=== PATIENT | male | born 1970 | race Caucasian/White ===

== ENCOUNTER 2016-08-12 11:45 | Emergency (ER) | payer BC ==
--- NOTE | 2016-08-12 11:58 | EDPHY ---
HPI/HX/ROS/PE/MDM Narrative: CHIEF COMPLAINT: Palpitations, Chest pressure. HPI: The patient is a 46-year-old male who complains of chest pressure with palpitations. The patient returned from [place] 1 week ago and developed chest pressure. He attributed his symptoms to dehydration. Yesterday he began to note a fluttering or "skipped beats" like sensation in his chest. He has had mild chest pressure constantly since that time. He states this feels similar to another time in the past when he had a Holter monitor. No chest pain with inspiration. REVIEW OF SYSTEMS: Aside from elements discussed in the HPI, a comprehensive 10-point review of systems was reviewed and is negative. PMH: Denies. No know cardiac disease. SOCIAL HISTORY: Works for [employer]. Denies drug or alcohol abuse. PHYSICAL EXAM: General: Patient is alert, in no acute distress. ENT: Eyes are normal to inspection. ENT inspection normal. Neck: Normal inspection. Full range of motion. Respiratory: No respiratory distress. Breath sounds normal bilaterally. Cardiovascular: Regular rate and rhythm. Strong peripheral pulses. Abdomen: The abdomen is nontender to palpation. There are no peritoneal signs. There are normal bowel sounds. Back: Normal to inspection. No tenderness to palpation. Skin: Normal color. No rash. Warm and dry. Extremities: Normal appearance. Full range of motion. Neuro: Oriented x3. Normal motor function. Normal sensory function. Portions of this note were transcribed by a director medical affairs. I personally performed a history, physical exam, medical decision making, and confirmed accuracy of information the transcribed note. ED Course: Patient presents with PVCs with associated chest pressure. Patient was placed on the monitor and storage bin tender. EKG, Chest x-ray, and lab work ordered. EKG was ordered and interpreted by myself: Sinus rhythm. Please see [facility] system for official reading. Patient has normal workup in the ED. Lab work is completely normal. D-dimer and Troponin negative. Chest x-ray is negative. Plan to discharge home with strict return precautions. MDM: This patient presents with palpitations and mild chest pressure. His troponin after constant extended discomfort is normal, and there are no signs of ischemia on ECG. I considered PE given recent travel but d-dimer is negative. On monitor, he is clearly having occasional PVCs without other arrhythmia, and his symptoms correspond to this finding. He is comfortable with the plan to be discharged and follow-up with Cardiology as an outpatient. We discussed strict return precautions. - Data Points Imaging Results: Imaging Impressions Chest X-Ray 08/12/16 11:57 Impression: Chest negative for acute cardiopulmonary abnormality. Imaging: I viewed and interpreted images myself Laboratory Results: Laboratory Results 08/12/16 12:00 08/12/16 12:00 08/12/16 08/12/16 08/12/16 12:00 12:00 12:00 WBC 6.02 10^3/uL 10^3/uL (3.80-9.50) RBC 4.87 10^6/uL 10^6/uL (4.40-6.38) Hgb 15.2 g/dL g/dL (13.7-17.5) Hct 44.4 % % (40.0-51.0) MCV 91.2 fL fL (81.5-99.8) MCH 31.2 pg pg (27.9-34.1) MCHC 34.2 g/dL g/dL (32.4-36.7) RDW 13.4 % % (11.5-15.2) Plt Count 309 10^3/uL 10^3/uL (150-400) MPV 10.0 fL fL (8.7-11.7) Neut % (Auto) 49.4 % % (39.3-74.2) Lymph % (Auto) 36.9 % % (15.0-45.0) [place] % (Auto) 9.0 % % (4.5-13.0) Eos % (Auto) 3.7 % % (0.6-7.6) Baso % (Auto) 0.8 % % (0.3-1.7) Nucleat RBC Rel Count 0.0 % % (0.0-0.2) Absolute Neuts (auto) 2.98 10^3/uL 10^3/uL (1.70-6.50) Absolute Lymphs (auto) 2.22 10^3/uL 10^3/uL (1.00-3.00) Absolute Monos (auto) 0.54 10^3/uL 10^3/uL (0.30-0.80) Absolute Eos (auto) 0.22 10^3/uL 10^3/uL (0.03-0.40) Absolute Basos (auto) 0.05 10^3/uL 10^3/uL (0.02-0.10) Absolute Nucleated RBC 0.00 10^3/uL 10^3/uL (0-0.01) Immature Gran % 0.2 % % (0.0-1.1) Immature Gran # 0.01 10^3/uL 10^3/uL (0.00-0.10) D-Dimer < 0.27 ug/mLFEU ug/mLFEU (0.00-0.50) Sodium 142 mEq/L mEq/L (134-144) Potassium 3.9 mEq/L mEq/L (3.5-5.2) Chloride 106 mEq/L mEq/L (97-110) Carbon Dioxide 24 mEq/l mEq/l (22-31) Anion Gap 12 mEq/L mEq/L (8-16) BUN 13 mg/dL mg/dL (7-23) Creatinine 1.2 mg/dL mg/dL (0.7-1.3) Estimated GFR > 60 Glucose 86 mg/dL mg/dL (70-100) Calcium 10.0 mg/dL mg/dL (8.5-10.4) Troponin I < 0.012 ng/mL ng/mL (0-0.034) General Time Seen by Provider: 08/12/16 11:51 Initial Vital Signs: Initial Vital Signs Temperature (C) 36.8 C 08/12/16 11:47 Heart Rate 81 08/12/16 11:47 Respiratory Rate 16 08/12/16 11:47 Blood Pressure 127/77 H 08/12/16 11:47 O2 Sat (%) 98 08/12/16 11:47 O2 Delivery Mode Room Air Allergies/Adverse Reactions: No Known Allergies Allergy (Unverified 08/12/16 11:50) Departure - Departure Disposition: Home, Routine, Self-Care Clinical Impression: Palpitations, PVC (premature ventricular contraction) Condition: Good Instructions: Palpitations (ED), Premature Ventricular Contractions (ED) Additional Instructions: Follow-up with your primary doctor as needed. Return to the Emergency Department for fever, chest pain, shortness of breath, increasing pain or other worsening of condition. Follow up with a rotary derrick operator for further testing, as soon as possible, within one week. As we discussed, it is impossible to fully rule out heart disease as the cause of your chest pressure in the emergency department. We would be happy to reevaluate you and observe you in the hospital at any time. Referrals: Delores Anguiano MD [Primary Care Provider] - As per Instructions [facility] [Provider Group] - As per Instructions Report Scribed for: Diogenes Singh Report Scribed by: Alanis Monroe Date of Report: 08/12/16 Time of Report: 11:59
--- NOTE | 2016-08-12 11:58 | CPEKG ---
Heart Rate: 74 RR Interval: 811 P-R Interval: 180 QRSD Interval: 110 QT Interval: 392 QTC Interval: 435 P [place]: 73 QRS [place]: 71 T Wave [place]: 48 EKG Severity - ABNORMAL ECG - EKG Impression: SINUS RHYTHM EKG Impression: INCOMPLETE RIGHT BUNDLE BRANCH BLOCK Electronically Signed By: Lamin Fuller 13-Aug-2016 13:57:52
[2016-08-12 12:07] LABS: % IMMATURE GRANULYOCYTES 0.2 % (0.0-1.1); ABSOLUTE IMMATURE GRANULOCYTES 0.01 10^3/uL (0.00-0.10); ADD DIFF? NO; ADD MORPH? NO; ADD SCAN? NO; ATYPICAL LYMPHOCYTE FLAG 0 (0-99); FRAGMENT RBC FLAG 0 (0-99); HEMATOCRIT 44.4 % (40.0-51.0); HEMOGLOBIN 15.2 g/dL (13.7-17.5); LEFT SHIFT FLG 0 (0-99); LIPEMIA HEMOLYSIS FLAG 90 (0-99); MEAN CELL HEMOGLOBIN 31.2 pg (27.9-34.1); MEAN CELL HEMOGLOBIN CONCENTR. 34.2 g/dL (32.4-36.7); MEAN CELL VOLUME 91.2 fL (81.5-99.8); PLATELET CLUMPS FLAG 0 (0-99); PLATELET COUNT 309 10^3/uL (150-400); RED BLOOD CELL COUNT 4.87 10^6/uL (4.40-6.38); RED CELL DISTRIBUTION WIDTH 13.4 % (11.5-15.2)
[2016-08-12 12:19] LABS: ANION GAP 12 mEq/L (8-16); CARBON DIOXIDE 24 mEq/l (22-31); CHLORIDE 106 mEq/L (97-110); CREATININE 1.2 mg/dL (0.7-1.3); GLOMERULAR FILTRATION RATE > 60; GLUCOSE 86 mg/dL (70-100); POTASSIUM 3.9 mEq/L (3.5-5.2); SODIUM 142 mEq/L (134-144)
[2016-08-12 12:37] LABS: TROPONIN I < 0.012 ng/mL (0-0.034)
[2016-08-12 13:22] VITALS: BP 117/88; PULSE 74; RESP 16; TEMP 98.8; O2SAT 96
== END 2016-08-12 13:21 | disposition home or self-care (01) ==
DX: I49.3 Ventricular premature depolarization (principal)